=== PATIENT | female | born 1990 | race Caucasian/White ===

== ENCOUNTER 2023-06-04 16:02 | Outpatient (AMB) | payer OTHER, SELFPAY ==
--- NOTE | 2023-06-04 16:08 | MHC.OFFWIV ---
Intake Vital Signs 06/04/23 16:10 Height 5 ft 7 in Weight 182 lb BMI 28.5 BP 128/76 Blood Pressure Location Lt brachial Position Sitting Pulse 80 Pulse Source Pulse Oximeter Temp 97.9 F Temp Source Oral Pulse Oximetry (%) 99 Intake Visit Reasons: [employer]/back muscle spasm (lobby) Intake Note: pt is here for c.o infected belly button, open sore on right breast and patient presented she also gets back spasms Patient Tobacco Use Status: Current everyday Tobacco user Allergies No Known Allergies Allergy (Verified 06/04/23 16:10) Do you need a note to return to daycare/school/sports/work: No HPI HPI Comments History of Present Illness Details This is a 33-year-old female with a past medical history of anxiety, depression and a thyroid nodule presenting for evaluation of posterior neck and upper back pain that she has had for the past 2 years and an ingrown hair on her left breast that she 1st noted 2 weeks ago. Patient has been cleaning the lesion on her left breast with alcohol daily and states that it has become more red. Patient has been taking ibuprofen for management of her back pain without complete relief. Patient denies any injury or trauma preceding the onset of her neck pain and upper back pain 2 years ago. Patient denies having any fevers, chills, nuchal rigidity, headaches or discharge from the lesion on her left breast. [facility] Social History Patient Tobacco Use Status: Current everyday Tobacco user Review of Systems Const All systems reviewed & are unremarkable except as noted in HPI and below Denies body aches, Denies chills, Denies fever(s) and Denies headache(s) Eyes Reports no additional complaints ENT Reports no additional complaints, Denies headache(s) and Reports neck pain Card Reports no additional complaints Resp Reports no additional complaints Musc Reports back pain and Reports neck pain Skin/Breast Reports breast skin changes, Denies breast pain and Denies breast mass Neuro Denies headache(s) Psych Reports no additional complaints Physical Exam Vital Signs: Last Vital Signs Temp 97.9 F 06/04/23 16:10 Pulse 80 06/04/23 16:10 BP 128/76 06/04/23 16:10 Pulse Ox 99 06/04/23 16:10 BMI result Body Mass Index 28.5 Patient is afebrile. Const General: cooperative, healthy appearing, comfortable, no acute distress, well developed, alert and awake Nutritional Appearance: overweight Orientation/consciousness: patient oriented x3 Limitations: no limitations Neck Neck: Yes full ROM, Yes no meningeal signs, No midline deformity and No tender Cardio Rate: regular rate Rhythm: regular rhythm Back/Spine/Pelvis Cervical Spine: normal cervical lordosis, cervical ROM normal, cervical muscular tenderness (L > R; no midline tenderness, no SCM tenderness bilaterally), No pain with cervical ROM, No cervical spasm and No Cervical spine tenderness Thoracic/Lumbar Spine: thoracic and lumbar spine normal to inspection and No thoracic spinal tenderness Skin Lesions: lesion noted (1.25cm erythematous irregular ulceration with 3mm surrounding erythema) ulcer left breast size (1.25cm), borders (irregular), color (erythematous, non.tender to examination), surface with an erythematous base; Negative for with discharge and tender Neuro General: patient oriented x3, no meningeal signs and CN's II-XI intact bilaterally Cranial nerves: Yes CN's II-XII intact bilaterally Psych Appearance: grossly normal Mental Status: mental status grossly normal Insight: Good insight present (Psych) Judgement: Good judgement present (Psych) Assessment & Plan Assessment & Plan (1) Cervical paraspinous muscle spasm: Comment: There are no meningeal signs a chronic issue of approximately 2 years. Patient will be prescribed anti-inflammatory and muscle relaxant. Code(s): M62.838 - Other muscle spasm Plan: Naprosyn b.i.d. and Robaxin t.i.d. as needed. Patient is urged to follow up with her primary care provider as an outpatient as she may require physical therapy evaluation and treatment. (2) Cellulitis of left breast: Code(s): N61.0 - Mastitis without abscess Plan: Keflex t.i.d. x7 days. Patient is instructed to discontinue cleaning the lesion with alcohol and use soap and water twice daily. Medications: New naproxen (Naprosyn) 500 mg PO BID 20 tabs 0RF methocarbamol 750 mg PO Q8H 20 tabs 0RF cephalexin 500 mg PO Q8H 21 caps 0RF Coding Level of Care Code New Pt Level 4 (35046) Diagnoses Cervical paraspinous muscle spasm M62.838 Cellulitis of left breast N61.0 Time Spent (min) 20
[2023-06-04 16:10] VITALS: BP 128/76; PULSE 80; TEMP 36.6; O2SAT 99; BMI 28.5
== END 2023-06-04 16:39 | disposition home or self-care (01) ==
PROVIDERS: Visit Provider Physician Assistant
DX: M62.838 Other muscle spasm (principal); N61.0 Mastitis without abscess
CPT/HCPCS: 99204